=== PATIENT | female | born 1945 | race Caucasian/White ===

== ENCOUNTER 2018-06-08 23:02 | Inpatient (IN) | payer OTHER ==
[2018-06-08 23:13] VITALS: BMI 30.9
[2018-06-09] MEDS: SODIUM CHLORIDE 1,000 ML IV STA ×2 (00:03→09:17)
[2018-06-09] MEDS ORDERED: HUMULIN R IV STA (00:08)
[2018-06-09] MEDS ORDERED: DILAUDID 0.5 MG/0.5 ML SYRINGE IVP STA (01:18)
[2018-06-09] MEDS ORDERED: ZOFRAN 4 MG/2 ML IVP STA (01:19)
[2018-06-09] MEDS ORDERED: POTASSIUM CHLORIDE PREMIX RUN 20 MEQ in PREMIX 100 ML WATER 2 BAG IV STA (02:15)
[2018-06-09] MEDS ORDERED: K-DUR PO STA (02:19)
--- NOTE | 2018-06-09 02:45 | ED.PDOC ---
General ED Provider: Dr. CHENG VAIL-ER Chief Complaint: Diabetes Stated Complaint: her bs is high--she is thirsty Time Seen by Physician: 02:43 Mode of Arrival: Walk-In Information Source: Patient, Family Exam Limitations: No limitations Primary Care Provider: SKINNY HESS Nursing and Triage Documentation Reviewed and Agree: Yes Does patient meet sepsis criteria?: No System Inflammatory Response Syndrome: Not Applicable Sepsis Protocol: For patient's 13 years and over: Temp is 96.8 and below OR 101 and greater Pulse >90 BPM Resp >20/minute Acutely Altered Mental Status Are patient's symptoms suggestive of a new infection, such as: -Pneumonia -Skin, Soft Tissue -Endocarditis -UTI -Bone, Joint Infection -Implantable Device -Acute Abdominal Infection -Wound Infection -Meningitis -Blood Stream Catheter Infection -Unknown Endocrine Complaint Exam - Diabetic Complication Complaint/Exam Onset/Duration: 24 hrs Symptoms Are: Still present Timing: Constant Initial Severity: Mild Current Severity: Moderate Character: Alert Alleviating: Reports: None Associated Signs and Symptoms: Reports: Polyuria, Nausea Related History: Reports: DM 2 Cardiac Risk Factors: Reports: DM, Hypertension CVA Risk Factors: Reports: None Related Surgical History: Reports: None Acetone on Breath: No Dry Mucous Membranes: Yes Kussmaul Respirations: No Meningeal Signs: No Focal Weakness: None Focal Sensory Loss: None Gait: Normal Nystagmus Present: No Gag Reflex Present: Yes Finger to Nose: Normal Romberg Test Positive: No Babinski Sign: Negative Right, Negative Left Heel to Toe Normal: Yes Differential Diagnoses: Hyperglycemia Quality Indicator For Non-Traumatic Chest Pain/Syncope: EKG Performed Review of Systems - Review Of Systems Constitutional: Reports: No symptoms Eyes: Reports: No symptoms Ears, Nose, Mouth, Throat: Reports: No symptoms Respiratory: Reports: No symptoms Cardiac: Reports: No symptoms GI: Reports: Nausea : Reports: Frequency Musculoskeletal: Reports: No symptoms Skin: Reports: No symptoms Neurological: Reports: No symptoms Endocrine: Reports: No symptoms Hematologic/Lymphatic: Reports: No symptoms All Other Systems: Reviewed and Negative Past Medical History - Past Medical History Previously Healthy: No Endocrine: Reports: DM 2 Cardiovascular: Reports: Unknown Respiratory: Reports: Other Hematological: Reports: None Gastrointestinal: Reports: None Genitourinary: Reports: CKD Neuro/Psych: Reports: None Musculoskeletal: Reports: None Cancer: Reports: None Last Menstrual Period: menopausal - Surgical History General Surgical History: Reports: Unknown - Family History Family History: Reports: Unknown - Social History Smoking Status: Former smoker Hx Substance Use: No Alcohol Screening: None - Immunizations Tetanus Shot up to Date: Yes (2 months ago) Physical Exam - Physical Exam Appearance: Well-appearing, No pain distress, Well-nourished Eyes: MIR, EOMI, Conjunctiva clear ENT: Ears normal Neck: Supple Respiratory: Airway patent, Breath sounds clear, Breath sounds equal, Respirations nonlabored Cardiovascular: RRR, Pulses normal, No rub, No murmur GI/: Soft, Nontender, No masses, Bowel sounds normal, No Organomegaly Musculoskeletal: Normal strength, ROM intact, No edema, No calf tenderness Skin: Warm Neurological: Sensation intact Psychiatric: Affect appropriate, Mood appropriate Interpretation - EKG Interpretation Time of EKG #1: 02:46 Rate: Normal Rhythm: Sinus Ectopy: None Interpretation: nsr Re-Evaluation - Re-Evaluation Time of Re-Evaluation: 03:47 Status: Improved Vital Signs Stable: Yes Pain Level: 0 Appearance: NAD Lungs: Clear Skin: Warm and Dry Neuro: Alert and Oriented X3 CV: RRR Physician Notification - Case Discussed Physician Notified: dr rincon Time of Notification: 03:48 Critical Care Note - Critical Care Note Total Time (mins): 30 Course - Course Hematology/Chemistry: 06/08/18 23:40 06/09/18 01:30 Orders, Labs, Meds: Lab Review 06/08/18 06/08/18 06/08/18 23:29 23:40 23:40 WBC 7.47 RBC 4.33 Hgb 11.8 L Hct 35.6 L MCV 82.2 MCH 27.3 MCHC 33.1 RDW Coeff of Brigette 16.1 H Plt Count 176 Immature Gran % (Auto) 0.3 Neut % (Auto) 79.5 Lymph % (Auto) 14.2 [place] % (Auto) 5.4 Eos % (Auto) 0.3 Baso % (Auto) 0.3 Immature Gran # (Auto) 0.0 Neut # (Auto) 6.0 Lymph # (Auto) 1.1 [place] # (Auto) 0.4 Eos # (Auto) 0.0 Baso # (Auto) 0.0 Puncture Site Lbrach O2 Saturation 95.0 ABG pH 7.420 ABG pCO2 45.5 H ABG pO2 74.0 L ABG HCO3 29.6 H ABG Total CO2 31 H ABG Base Excess 5 H Jose Test + FiO2 % 21.0 Sodium 132 L Potassium 4.5 Chloride 95 L Carbon Dioxide 28 Anion Gap 13.5 BUN 36 H Creatinine 1.75 H Estimated GFR (MDRD) 28.00 BUN/Creatinine Ratio 20.57 Glucose 754 H* Calcium 9.6 Total Bilirubin 0.4 AST 12 L ALT 12 Alkaline Phosphatase 209 H Total Protein 7.0 Albumin 3.7 Globulin 3.3 Albumin/Globulin Ratio 1.12 Urine Color Urine Clarity Urine pH Ur Specific [place] Urine Protein Urine Glucose (UA) Urine Ketones Urine Blood Urine Nitrite Urine Bilirubin Urine Urobilinogen Ur Leukocyte Esterase 06/08/18 06/09/18 23:40 01:30 WBC RBC Hgb Hct MCV MCH MCHC RDW Coeff of Brigette Plt Count Immature Gran % (Auto) Neut % (Auto) Lymph % (Auto) [place] % (Auto) Eos % (Auto) Baso % (Auto) Immature Gran # (Auto) Neut # (Auto) Lymph # (Auto) [place] # (Auto) Eos # (Auto) Baso # (Auto) Puncture Site O2 Saturation ABG pH ABG pCO2 ABG pO2 ABG HCO3 ABG Total CO2 ABG Base Excess Jose Test FiO2 % Sodium 138 Potassium 3.6 Chloride 100 Carbon Dioxide 28 Anion Gap 13.6 BUN 33 H Creatinine 1.49 H Estimated GFR (MDRD) 34.00 BUN/Creatinine Ratio 22.14 Glucose 380 H D Calcium 9.9 Total Bilirubin AST ALT Alkaline Phosphatase Total Protein Albumin Globulin Albumin/Globulin Ratio Urine Color Yellow Urine Clarity Clear Urine pH 7.0 Ur Specific [place] 1.010 Urine Protein Negative Urine Glucose (UA) 2+ Urine Ketones Negative Urine Blood Negative Urine Nitrite Negative Urine Bilirubin Negative Urine Urobilinogen 0.2 Ur Leukocyte Esterase Negative Orders Category Date Time Status ABG DRAW REQUEST Stat CARDIO 06/08/18 23:29 Completed EKG-(ED ONLY) Stat CARDIO 06/08/18 23:29 Completed BLOOD GLUCOSE MONITORING Q1HR CARE 06/09/18 00:10 Active ED IV/MEDIPORT/POWERPORT .ONCE EMERGENCY 06/08/18 23:30 Active Glucose [ED ACCUCHECK ASSESSMENT] .ONCE EMERGENCY 06/08/18 23:23 Active ABG Stat LAB 06/08/18 23:29 Completed BMP [BASIC METABOLIC PANEL] Stat LAB 06/09/18 01:30 Completed CBC W/ AUTO DIFF Stat LAB 06/08/18 23:40 Completed COMPREHENSIVE METABOLIC PANEL Stat LAB 06/08/18 23:40 Completed URINALYSIS C & S IF INDICATED Stat LAB 06/08/18 23:40 Completed 0.9 % Sodium Chloride [Saline Flush] MEDS 06/08/18 23:30 Ordered 1 syr IVF PRN PRN Hydromorphone HCl [Dilaudid 0.5 mg/0.5 ml Syringe] MEDS 06/09/18 01:18 Discontinued 1 mg IVP ONCE STA Insulin Regular, Human [Humulin R] MEDS 06/09/18 00:08 Discontinued 15 unit IV ONCE STA Ondansetron HCl/Pf [Zofran 4 mg/2 ml] MEDS 06/09/18 01:19 Discontinued 4 mg IVP ONCE STA Potassium Chloride [K-Dur] MEDS 06/09/18 02:19 Discontinued 20 meq PO ONCE STA Sodium Chloride 0.9% [Sodium Chloride] 1,000 ml MEDS 06/08/18 23:30 Active IV 100 mls/hr Medications Generic Name Dose Route Start Last Admin Trade Name Freq PRN Reason Stop Dose Admin Sodium Chloride 1,000 mls @ 100 mls/hr 06/08/18 23:30 06/09/18 00:03 Sodium Chloride IV 06/09/18 09:29 100 mls/hr .Q10H STA Administration Sodium Chloride 1 syr 06/08/18 23:30 06/09/18 00:18 Saline Flush IVF 1 syr PRN PRN Administration To flush IV Discontinued Medications Generic Name Dose Route Start Last Admin Trade Name Freq PRN Reason Stop Dose Admin Hydromorphone HCl 1 mg 06/09/18 01:18 06/09/18 01:36 Dilaudid 0.5 Mg/0.5 Ml Syringe IVP 06/09/18 01:19 1 mg ONCE STA Administration Insulin Human Regular 15 unit 06/09/18 00:08 06/09/18 00:18 Humulin R IV 06/09/18 00:09 15 unit ONCE STA Administration Ondansetron HCl 4 mg 06/09/18 01:19 06/09/18 01:37 Zofran 4 Mg/2 Ml IVP 06/09/18 01:20 4 mg ONCE STA Administration Potassium Chloride 20 meq 06/09/18 02:19 06/09/18 02:24 K-Dur PO 06/09/18 02:20 20 meq ONCE STA Administration Vital Signs: Temp Pulse Resp BP Pulse Ox 06/08/18 23:04 97.3 F L 60 18 182/85 H 96 Departure - Departure Time of Disposition: 03:48 Disposition: ADMITTED INPATIENT Discharge Problem: Hyperglycemia due to type 2 diabetes mellitus Qualifiers: Diabetes mellitus terminal gauger insulin use: with terminal gauger use Qualified Code(s): E11.65 - Type 2 diabetes mellitus with hyperglycemia; Z79.4 - penitentiary (current ) use of insulin Condition: Good Pt referred to PMD for follow-up: No IPMP verified?: No Allergies/Adverse Reactions: Allergies Barbiturates Adverse Reaction (Verified 06/08/18 23:15) Hives enoxaparin [From Lovenox] Adverse Reaction (Verified 06/08/18 23:14) large hematoma levofloxacin [From Levaquin] Adverse Reaction (Verified 06/08/18 23:15) Chest Tightness Home Medications: Ambulatory Orders Alendronate Sodium 10 mg PO DAILY 06/08/18 Alprazolam [Xanax] 1 mg PO BID 06/08/18 Aspirin [Aspirin EC] 81 mg PO DAILY 06/08/18 Atorvastatin Calcium [Lipitor] 40 mg PO DAILY 06/08/18 Bumetanide 1 mg PO DAILY 06/08/18 Calcium Carbonate [Calcium] 600 mg PO BID 06/08/18 Cetirizine HCl [Zyrtec] 10 mg PO DAILY 06/08/18 Cholecalciferol (Vitamin D3) [Vitamin D] 1,000 unit PO BID 06/08/18 Clopidogrel Bisulfate [Plavix] 75 mg PO DAILY 06/08/18 Ferrous Sulfate 65 mg PO DAILY 06/08/18 Gabapentin [Neurontin] 600 mg PO TID 06/08/18 Hydrocodone Bit/Acetaminophen [[place] 10-325] 10 - 325 each PO Q6HR PRN 06/08/18 Insulin Glargine,Hum.rec.anlog [Lantus Solostar] 10 unit SQ BEDTIME 06/08/18 Magnesium 250 mg PO DAILY 06/08/18 Montelukast Sodium [Singulair] 10 mg PO DAILY 06/08/18 Ondansetron HCl [Zofran] 4 mg PO DAILY PRN 06/08/18 Potassium Chloride [K-Dur] 20 meq PO DAILY 06/08/18 Pramipexole Di-HCl [Mirapex] 0.5 mg PO BEDTIME 06/08/18 Pregabalin [Lyrica] 75 mg PO BID 06/08/18 Disposition Discussed With: Patient, Family
[2018-06-09] MEDS ORDERED: NORCO 10-325 PO PRN (03:51)
[2018-06-09] MEDS ORDERED: ZOFRAN TAB PO PRN (03:51)
[2018-06-09] MEDS ORDERED: NON-FORMULARY MEDICATION (Atorvastatin Calcium [Lipitor] 40 MG) PO SCH (09:00)
[2018-06-09] MEDS ORDERED: FERROUS SULFATE 65 MG PO SCH (09:00)
[2018-06-09] MEDS ORDERED: NON-FORMULARY MEDICATION (Alprazolam [Xanax] 1 MG) PO SCH (09:00)
[2018-06-09] MEDS ORDERED: NON-FORMULARY MEDICATION (Gabapentin [Neurontin] 600 MG) PO SCH (09:00)
[2018-06-09] MEDS: LIPITOR PO SCH (09:13)
[2018-06-09] MEDS: K-DUR PO SCH (09:13)
[2018-06-09] MEDS: VITAMIN D PO SCH ×2 (09:13→21:28)
[2018-06-09] MEDS: NEURONTIN PO SCH ×3 (09:13→21:28)
[2018-06-09] MEDS: ASPIRIN EC PO SCH (09:13)
[2018-06-09] MEDS: BUMEX PO SCH (09:14)
[2018-06-09] MEDS: SINGULAIR PO SCH (09:14)
[2018-06-09] MEDS: LYRICA PO SCH ×2 (09:14→21:27)
[2018-06-09] MEDS: FERROUS SULFATE PO SCH (09:14)
[2018-06-09] MEDS: PLAVIX PO SCH (09:14)
[2018-06-09] MEDS: XANAX PO SCH ×2 (09:14→21:27)
[2018-06-09] MEDS: SODIUM CHLORIDE 1,000 ML IV SCH (09:25)
[2018-06-09] MEDS: NON-FORMULARY MEDICATION (Magnesium [Magnesium] 250 MG) PO SCH (09:26)
[2018-06-09] MEDS: HUMULIN R SUBCUT PRN ×3 (13:48→21:28)
[2018-06-09] MEDS ORDERED: PRAMIPEXOLE DI HCL 0.5 MG PO SCH (21:00)
[2018-06-09] MEDS ORDERED: LANTUS SUBCUT SCH (21:00)
[2018-06-09] MEDS ORDERED: INSULIN GLARGINE HUM REC ANLOG 10 UNIT SQ SCH (21:00)
[2018-06-09] MEDS: MIRAPEX PO SCH (21:27)
[2018-06-09] MEDS: LANTUS SUBCUT SCH (21:29)
[2018-06-10] MEDS: SODIUM CHLORIDE 1,000 ML IV SCH (02:15)
[2018-06-10] MEDS: HUMULIN R SUBCUT PRN ×4 (07:13→21:27)
[2018-06-10] MEDS: XANAX PO SCH ×2 (09:09→21:31)
[2018-06-10] MEDS: LYRICA PO SCH ×2 (09:09→22:03)
[2018-06-10] MEDS: SINGULAIR PO SCH (09:10)
[2018-06-10] MEDS: K-DUR PO SCH (09:11)
[2018-06-10] MEDS: NEURONTIN PO SCH ×3 (09:11→21:30)
[2018-06-10] MEDS: NON-FORMULARY MEDICATION (Magnesium [Magnesium] 250 MG) PO SCH (09:11)
[2018-06-10] MEDS: LIPITOR PO SCH (09:12)
[2018-06-10] MEDS: ASPIRIN EC PO SCH (09:12)
[2018-06-10] MEDS: PLAVIX PO SCH (09:13)
[2018-06-10] MEDS: VITAMIN D PO SCH ×2 (09:13→21:30)
[2018-06-10] MEDS: BUMEX PO SCH (09:13)
[2018-06-10] MEDS: FERROUS SULFATE PO SCH (09:14)
[2018-06-10] MEDS ORDERED: LASIX IVP STA (11:53)
--- NOTE | 2018-06-10 12:55 | HP ---
DATE OF SERVICE: 06/09/18 CHIEF COMPLAINT/HISTORY OF PRESENT ILLNESS: The patient has a history of diabetes was vomiting last night. Vomit consists of the food material, non-bile. Very thirty. Checked the sugars and it was showing high and more than 600, came to the emergency room. Blood pressure 182/ 85. Seen by Dr. Resendez in the emergency room. WBC was normal. Hgb 11.8. ABG showed pH 7.420, pCO2 45.5, pO2 74. Sugars were 754, no ketones, Sodium 132. Dr. Resendez gave dose of 15 units of regular insulin, repeat was 417. At that time the patient was admitted to the hospital for the hyperosmolar hyperglycemia and uncontrolled diabetes. REVIEW OF SYSTEMS: CONSTITUTIONAL: No fever, no chills. Weakness and tiredness. HEENT: Normal. ENDOCRINE: No weight gain; no weight loss. CVS: No chest pain. No PND, no orthopnea. No shortness of breath. No PND, no orthopnea. RESPIRATORY: No cough, no congestion. No hemoptysis. GI: No nausea, Vomiting. Upper abdominal pain. No melena. : No hematuria. No polyuria. MUSCULOSKELETAL: No joint swelling. PSYCHIATRIC: Not anxious. No depression. No suicidal thoughts. No homicidal thoughts. SKIN: Intact, no open lesions. PAST MEDICAL HISTORY: CAD Atrial fibrillation History of brain aneurysm History of valve replacement Dyslipidemia CVA TIA Brain shunt GERD Diabetes Anxiety disorder PAST SURGICAL HISTORY: Cataract surgery Heart valve replacement PERSONAL HISTORY: The patient does not smoke or drink. FAMILY HISTORY: CHF Type 2 diabetes MEDICATIONS: [place] Mirapex Vitamin D Xanax Lyrica Singulair Magnesium Lantus 12 units Neurontin Lipitor Aspirin Alendronate K-Dur Bumetanide Calcium Ferrous sulfate Zofran Plavix Zyrtec ALLERGIES: Barbiturates Lovenox Levofloxacin PHYSICAL EXAMINATION: V/S: Blood pressure 182/85, respiratory rate 18, heart rate 60, temperature 97.4 with saturation 96% GENERAL: Sick looking lady lying in a bed, in discomfort. HEENT: Atraumatic, normocephalic. No scleral icterus. Pallor positive. Mucosa dry NECK: Supple. No JVD, no bruit. No lymphadenopathy. No thyromegaly. HEART: S1, S2 normal. Systolic murmur. No cyanosis or clubbing. No ascites. LUNGS: Clear to auscultation. No rales or rhonchi. ABDOMEN: Soft, epigastric discomfort present. Bowel sounds are active. No CVA tenderness. No rigidity or guarding. EXTREMITIES: No pedal edema. No cyanosis or clubbing MUSCULOSKELETAL: Normal joints, no swelling. NEUROLOGIC: The patient is awake and alert SKIN: Intact; no open lesions. LYMPHATIC: No lymph nodes palpable. LABS: Sodium 132, potassium 4.5, chloride 95, bicarb 28, BUN 36, creatinine 1.72, glucose 380, WBC 7.47, hgb 11.8, hct 35.6, plt count 176. U/A ketones negative, glucose positive. ASSESSMENT: 1. Hyperosmolar hyperglycemia PLAN: 1. Admit patient to the regular floor 2. IV fluids 3. Zofran 4. Diabetic diet 5. Accu-checks with coverage 6. Protonix 7. Insulin 12 units HS with coverage TIME SPENT: MORE THAN 65- 70 minutes MTDD
--- NOTE | 2018-06-10 15:28 | CT ---
EXAM: CT chest without contrast. HISTORY: Shortness of breath. COMPARISON: None available. TECHNIQUE: Multiple axial images of the chest were obtained without intravenous contrast. Images we re reformatted in the sagittal and coronal planes. FINDINGS: There has been previous sternotomy with aortic valve repair and left atrial clip placement . Heart is at the upper limits of normal size. Atherosclerotic calcifications present. No pericard ial effusion identified. Evaluation for lymphadenopathy is limited by lack of intravenous contrast. The main pulmonary artery is markedly enlarged measuring nearly 6.2 cm diameter. Nodular ground-glass opacities are seen in the left lower lobe. Linear opacity in the anterior right upper lobe on axial image 28 likely subsegmental atelectasis or scarring. No consolidation, pleural effusion or pneumothorax identified. Limited images of the upper abdomen demonstrate no acute finding. Possible exophytic left renal cyst on axial image 64 which is that completely imaged. Degenerative changes present. The spine. Old a ppearing superior endplate compression deformities of L1 and L2 noted. IMPRESSION: 1. Left lower lobe ground-glass nodules most likely representing pneumonitis. Follow-up CT within 3 months recommended for reassessment. 2. Marked enlargement of the main pulmonary artery suggesting pulmonary artery hypertension.
[2018-06-10] MEDS: COREG PO SCH ×2 (15:38→22:03)
[2018-06-10] MEDS: LANTUS SUBCUT SCH (21:28)
[2018-06-10] MEDS: MIRAPEX PO SCH (21:30)
[2018-06-11] MEDS: SODIUM CHLORIDE 1,000 ML IV SCH (07:10)
[2018-06-11] MEDS: FERROUS SULFATE PO SCH (08:54)
[2018-06-11] MEDS: PLAVIX PO SCH (08:54)
[2018-06-11] MEDS: ASPIRIN EC PO SCH (08:54)
[2018-06-11] MEDS: XANAX PO SCH (08:54)
[2018-06-11] MEDS: LIPITOR PO SCH (08:54)
[2018-06-11] MEDS: COREG PO SCH ×2 (08:55→16:59)
[2018-06-11] MEDS: K-DUR PO SCH (08:55)
[2018-06-11] MEDS: BUMEX PO SCH (08:55)
[2018-06-11] MEDS: LYRICA PO SCH (08:55)
[2018-06-11] MEDS: SINGULAIR PO SCH (08:55)
[2018-06-11] MEDS: VITAMIN D PO SCH (08:55)
[2018-06-11] MEDS: NEURONTIN PO SCH ×2 (08:55→14:49)
[2018-06-11] MEDS: NON-FORMULARY MEDICATION (Magnesium [Magnesium] 250 MG) PO SCH (08:56)
--- NOTE | 2018-06-11 09:58 | PN ---
DATE OF SERVICE: 06/10/18 SUBJECTIVE: The patient is more awake and alert. Blood sugars are still fluctuating; 181, 269, 325 yesterday evening. The patient is eating better. REVIEW OF SYSTEMS: CONSTITUTIONAL: No fever, no chills. HEENT: Normal. ENDOCRINE: No weight gain, no weight loss. CVS: No angina symptoms. No CHF symptoms. No palpitations. No atypical chest pain for CAD. No shortness of breath. No PND, no orthopnea. RESPIRATORY: No cough, no hemoptysis. GI: No nausea, no vomiting. No abdominal pain. : No hematuria. No polyuria. MUSCULOSKELETAL: No joint swelling. PSYCHIATRIC: Not anxious. No depression. No suicidal thoughts. No homicidal thoughts. SKIN: Intact. No rash. PHYSICAL EXAMINATION: V/S: Blood pressure 107/74, respiratory rate 20, heart rate 81, temperature 97.5 with saturation 94%. HEENT: Normocephalic, atraumatic. Mucosa dry. Pallor positive. No icterus. NECK: Supple. No JVD, no carotid bruit. No lymphadenopathy. LUNGS: Clear to auscultation. No rales or rhonchi. HEART: S1, S2 normal. No S3. No murmur, gallop or regurgitation. ABDOMEN: Soft, nontender. Bowel sounds active. No rigidity. No rebound or guarding. No CVA tenderness. EXTREMITIES: No cyanosis, clubbing or pedal edema. MUSCULOSKELETAL: No joint swelling. NEUROLOGIC: Awake, alert. No focal deficit. LYMPHATIC: No lymph nodes palpable. SKIN: Intact. LABS: WBC 7.47, hgb 11.8, hct 35.6, plt count 176, sodium 134, potassium 4.8, chloride 99, bicarb 30, BUN 31, creatinine 1.26 and glucose 395. ASSESSMENT: 1. Hyperosmolar hyperglycemia 2. Atrial fibrillation, rate controlled 3. CAD 4. CHF 5. Diabetes uncontrolled with A1c 11.4 6. Valve replacement 7. Vein surgery 8. TIA PLAN: 1. Increase the Lantus to 15 units 2. Coreg 3.125 3. Stop the IV fluids 4. Accu-checks with the coverage TIME SPENT: More than 35 minutes MTDD
[2018-06-11] MEDS: HUMULIN R SUBCUT PRN ×2 (11:27→17:00)
[2018-06-11] MEDS ORDERED: JANUVIA PO SCH (16:30)
[2018-06-11 17:08] VITALS: BP 122/82; TEMP 97.6
--- NOTE | 2018-06-11 17:34 | PCM.HOSP ---
- Initial Hospital Care [id number] 70 Minutes Bedside ([id number]): 06/09 - Subsequent Care [id number] 35 Minutes per Day ([id number]): 06/10 - Hospital Discharge [id number] More than 30 Minutes ([id number]): 06/11
--- NOTE | 2018-06-12 10:41 | PN ---
DATE OF SERVICE: 06/11/18 SUBJECTIVE: The patient was admitted with hyperosmolar hyperglycemia. The patient had a run of atrial fibrillation with ventricular rate controlled. We did started on the Coreg 6.125. Today the heart rate is regular and the heart rate is 60-66 and blood sugars are still going up to 350. REVIEW OF SYSTEMS: CONSTITUTIONAL: No fever, no chills. HEENT: Normal. ENDOCRINE: No weight gain, no weight loss. CVS: No angina symptoms. No CHF symptoms. No palpitations. No atypical chest pain for CAD. No shortness of breath. No PND, no orthopnea. RESPIRATORY: No cough, no hemoptysis. GI: No nausea, no vomiting. No abdominal pain. : No hematuria. No polyuria. MUSCULOSKELETAL: No joint swelling. PSYCHIATRIC: Not anxious. No depression. No suicidal thoughts. No homicidal thoughts. SKIN: Intact. No rash. PHYSICAL EXAMINATION: V/S: blood pressure 112/69, respiratory rate 20, heart rate 72, temperature 98.0 with saturation 9%. HEENT: Normocephalic, atraumatic. Mucosa dry, Pallor positive. No icterus. NECK: Supple. No JVD, no carotid bruit. No lymphadenopathy. LUNGS: Decreased and Clear to auscultation. No rales or rhonchi. HEART: S1, S2 normal. No S3. Systolic murmur, gallop or regurgitation. ABDOMEN: Soft, nontender. Bowel sounds active. No rigidity. No rebound or guarding. No CVA tenderness. EXTREMITIES: No cyanosis, clubbing or pedal edema. MUSCULOSKELETAL: No joint swelling. NEUROLOGIC: Awake, alert. No focal deficit. LYMPHATIC: No lymph nodes palpable. SKIN: Intact. LABS: WBC 7.05, hgb 13.1, hct 38.9, plt count 197, sodium 138, potassium 3.8, chloride 101, bicarb 30, BUN 38, creatinine 1.17 and glucose 116. ASSESSMENT: 1. Hyperosmolar hyperglycemia 2. Diabetes, uncontrolled with A1c 11.4 3. Acute renal failure which is better 4. CVA 5. TIA 6. Atrial fibrillation 7. Neuropathy 8. Anxiety 9. Sleep apnea 10.Valve replacement 12/2017 PLAN: 1. Continue Lantus at 15 units daily with nighttime snack 2. Accu-checks with coverage 3. Daily I&O's 4. Hyperglycemia been discussed and verbalized understanding. TIME SPENT: More than 35 minutes MTDD
--- NOTE | 2018-06-12 11:03 | PN ---
DATE OF SERVICE: 06/11/18 FINAL DIAGNOSIS: 1. Hyperosmolar hyperglycemia 2. Hyperkalemia 3. Hypertension 4. CVA 5. TIA 6. Atrial fibrillation on exterminator anticoagulation 7. Neuropathy 8. Sleep apnea 9. History of brain aneurysm 10.Valve replacement 2018 11.Scope both knees, Dr. Jha 12.Anxiety disorder 13.CHF 14.Asthma DISCHARGE INSTRUCTIONS: Discharge the patient home. Followup with PMD, Dr. Lock with 5-7 days. Increase Lantus dose to 15 units HS. MEDICATIONS AT DISCHARGE: Hydrocodone Mirapex Xanax Aspirin Lipitor Bumex Calcium Zyrtec Vitamin D Plavix Ferrous sulfate Neurontin Magnesium Singulair Zofran Lyrica NEW PRESCRIPTIONS: Januvia 50mg PO daily Coreg 3.125mg twice a day DIET INSTRUCTIONS: Diabetic diet Night time snack. ACTIVITY: As much as tolerated DISEASE SPECIFIC EDUCATION: Hyperosmolar hyperglycemia Diabetic ketoacidosis been discussed and verbalized understanding. HOSPITAL COURSE: Aarti Mujica 72 year old female who follows with Dr. Lock in [place] started having the diarrhea, nausea, vomiting and not able to keep anything down, checked the sugars in the night. It was more than 600 and checked the sugars again it was extremely high. Came to the emergency room and seen by the ER physician for that. Hgb was 11.8, ABG is negative. Sodium was 154, potassium normal, glucose 754. At that time the patient was given 2 units of insulin and admitted to the hospital for hyperosmolar hyperglycemia with Accu-checks and coverage and Lantus continuation. Sugars went down to the 380. A1c was 11.4. BUN and creatinine was 36 and 1.75 with given IV fluids it did get better 31 and 1.26. Meanwhile the patient been up and about. CT chest done to rule out any infection. Left lower lobe ground glass nodules most likely representing pneumonitis. Followup in three months but the patient was not coughing, congested and no fever or chills. At this time not address at this time. Pulmonary hypertension was seen otherwise no new findings. Urine was negative for the infection. Lantus insulin was increased to the 15 units SUBCUT at HS and Januvia is added. The patient went into the bout of atrial fibrillation with rate of almost 140 and came down to the 100. Coreg 1.325 was started as the patient's blood pressure borderline. The patient today been up and about and did not have any problems and wanted to go home so the patient been discharged home. Strictly advised to continue monitoring the blood sugar. Hyperglycemia been discussed and verbalized understanding. TIME SPENT: MORE THAN 65 MINUTES JANET
== END 2018-06-11 18:15 | disposition home or self-care (01) | DRG 639 ==
LOC: ED 23:02 → MEDSURG A 06-09 04:16
PROVIDERS: ADMIT Emergency Medicine; ATTEND Emergency Medicine
DX: E11.00 Type 2 diabetes mellitus with hyperosmolarity without nonketotic hyperglycemic-hyperosmolar coma (NKHHC) (principal); E87.5 Hyperkalemia; R35.8 Other polyuria; R11.0 Nausea; I48.91 Unspecified atrial fibrillation; I10 Essential (primary) hypertension; I50.9 Heart failure, unspecified; G62.9 Polyneuropathy, unspecified; G47.30 Sleep apnea, unspecified; J45.909 Unspecified asthma, uncomplicated; F41.9 Anxiety disorder, unspecified; Z79.01 Long term (current) use of anticoagulants; Z79.4 Long term (current) use of insulin
CPT/HCPCS: 36415; 80048; 80053; 80061; 81001; 82803; 82962; 83036; 83880; 84443; 85025; 93005; 93010; 96361; 96374; 96375; 97802; 99284